=== PATIENT | male | born 1945 | race Caucasian/White ===

== ENCOUNTER 2016-12-01 16:15 | Emergency (ER) | payer MEDICARE, OTHER ==
[~2016-12-01 16:15] MED LIST: ASPIRIN EC81 MG PO; DIOVAN320 MG PO; DULERA 200 MCG8.8 GM INH; HYDROCHLOROTHIA25 MG PO; K-DUR TAB 10 M10 MEQ PO; LEVEMIR100 UNIT/1 SC; LOVENOX SY40 MG/0.4 SC; MICARDIS80 MG PO; NEURONTIN 300300 MG PO; NORCO 10-325 T1 EACH PO; PLAVIX 75 MG TA75 MG PO; PROTONIX40 MG PO; XARELTO10 MG PO; ZESTRIL20 MG PO; ZOCOR40 MG PO
[2016-12-01 16:52] LABS: HEMOGLOBIN 11.9 gm/dl (14.0-17.5); RED BLOOD COUNT 4.32 M/UL (4.20-5.50); WHITE BLOOD COUNT 9.5 K/UL (4.5-11.0)
[2016-12-01 17:13] LABS: BUN/CREATININE RATIO 13 (0-10)
== END 2016-12-01 22:30 | disposition home or self-care (01) ==
LOC: ER1 16:15
PROVIDERS: Family Medicine
DX: J44.1 Chronic obstructive pulmonary disease with (acute) exacerbation (principal); I25.10 Atherosclerotic heart disease of native coronary artery without angina pectoris; E11.40 Type 2 diabetes mellitus with diabetic neuropathy, unspecified; I10 Essential (primary) hypertension; E78.5 Hyperlipidemia, unspecified; Z87.891 Personal history of nicotine dependence; Z79.02 Long term (current) use of antithrombotics/antiplatelets; Z79.82 Long term (current) use of aspirin; Z99.81 Dependence on supplemental oxygen; Z79.899 Other long term (current) drug therapy
CPT/HCPCS: 36415; 36600; 71010; 80053; 81001; 82550; 82553; 82803; 83605; 83874; 84484; 85025; 87040; 93005; 94640; 94664; 99285; J1200; J2405; J2930